=== PATIENT | male | born 1990 | race African-American/Black ===

== ENCOUNTER → 2018-06-13 | Outpatient (CLI) | payer OTHER | END | disposition home or self-care (01) | LOC: LAB 10:38 | PROVIDERS: ATTEND Preventive Medicine Preventive Medicine/Occupational Environmental Medicine | DX: Z02.1 Encounter for pre-employment examination (principal) | CPT/HCPCS: 36415; 86706; 86735; 86762; 86765; 86787 ==

== ENCOUNTER 2018-10-12 10:18 | Emergency (ER) | payer OTHER ==
[~2018-10-12] VITALS: Ht 205.7 cm; Wt 142.4 kg
[2018-10-12] MEDS ORDERED: SODIUM CHLORIDE 0.9% 1,000 ML IVB ONE (10:37)
[2018-10-12] MEDS ORDERED: KETOROLAC TROMETH 30 MG/ML 1ML VIAL IV ONE (10:45)
[2018-10-12] MEDS ORDERED: PANTOPRAZOLE 40 MG/10 ML VIAL IV ONE (11:00)
[2018-10-12 11:10] LABS: Eosinophils # (auto) 0 uL; Eosinophils % (auto) 0.1 % (0.0-7.0); Monocytes % (auto) 9.7 % (0.0-12.0); Red Blood Cells 5.37 10^6/uL (4.5-5.90)
[2018-10-12 11:11] LABS: Basophils # (auto) 0 uL; Basophils % (auto) 0.4 % (0.0-2.0); Hematocrit 42.3 % (41.0-53.0); Hemoglobin 13.9 g/dL (13.5-17.5); Lymphocytes # (auto) 1.4 uL; Lymphocytes % (auto) 14.4 % (10.0-50.0); Mean Corpuscular Hemoglobin 25.9 pg (28.0-32.0); Mean Corpuscular Hgb Conc. 32.9 g/dL (32.0-36.0); Mean Corpuscular Volume 78.7 fL (80.0-100.0); Neutrophils # (auto) 7.6 uL; Neutrophils % (auto) 75.4 % (37.0-80.0); Platelet Count (auto) 337 10^3/uL (140-450); Red Cell Distribution Width 13.4 % (11.8-14.3)
[2018-10-12 11:31] LABS: Albumin 4.3 g/dL (3.4-5.0); Calcium 9.4 mg/dL (8.5-10.1); Potassium 3.7 mmol/L (3.5-5.1)
[2018-10-12 11:36] LABS: BUN/Creatinine Ratio 10.5; Bilirubin, Total 0.7 mg/dL (0.2-1.0); Total Protein 8.4 g/dL (6.4-8.2)
[2018-10-12 13:11] VITALS: BP 123/78
== END 2018-10-12 13:13 | disposition home or self-care (01) ==
LOC: EDBD 10:18 → ER 10:18
DX: K52.9 Noninfective gastroenteritis and colitis, unspecified (principal); F17.210 Nicotine dependence, cigarettes, uncomplicated
CPT/HCPCS: 36415; 74176; 80053; 82150; 83690; 85025; 94761; 96361; 96374; 96375; 99284; C9113; J1885; J7030

== ENCOUNTER → 2020-04-10 | Emergency (ER) | payer OTHER, MEDICAID ==
[~2020-04-10] VITALS: Ht 205.7 cm; Wt 145.1 kg
[2020-04-10 20:46] VITALS: BP 116/72
== END | disposition home or self-care (01) ==
LOC: ER 20:26
DX: S80.01XA Contusion of right knee, initial encounter (principal); F17.210 Nicotine dependence, cigarettes, uncomplicated; W01.0XXA Fall on same level from slipping, tripping and stumbling without subsequent striking against object, initial encounter; Y93.89 Activity, other specified; Y92.89 Other specified places as the place of occurrence of the external cause; Y99.0 Civilian activity done for income or pay
CPT/HCPCS: 73562

== ENCOUNTER 2020-07-26 06:00 | Emergency (ER) | payer MEDICAID, OTHER ==
[~2020-07-26] VITALS: Ht 205.7 cm; Wt 149.2 kg
[2020-07-26] MEDS ORDERED: SODIUM CHLORIDE 0.9% 1,000 ML IV ONE (07:45)
[2020-07-26 08:00] LABS: Basophils # (auto) 0.1 10 ^3/uL (0-0.2); Eosinophils # (auto) 0.1 10 ^3/uL (0-0.8); Hemoglobin 12.1 g/dL (13.5-17.5); Nucleated Red Blood Cells % 0.1 %
[2020-07-26 08:02] LABS: Basophils % (auto) 1.4 % (0.0-2.0); Eosinophils % (auto) 2.1 % (0.0-7.0); Hematocrit 37.2 % (41.0-53.0); Lymphocytes # (auto) 1.7 10 ^3/uL (0.4-5.4); Lymphocytes % (auto) 31.2 % (10.0-50.0); Mean Corpuscular Hemoglobin 26.1 pg (28.0-32.0); Mean Corpuscular Hgb Conc. 32.5 g/dL (32.0-36.0); Mean Corpuscular Volume 80.2 fL (80.0-100.0); Monocytes # (auto) 0.6 10 ^3/uL (0-1.3); Monocytes % (auto) 10.4 % (0.0-12.0); Neutrophils # (auto) 2.9 10 ^3/uL (1.6-8.6); Neutrophils % (auto) 54.9 % (37.0-80.0); Platelet Count (auto) 258 10^3/uL (140-450); Red Blood Cells 4.64 10^6/uL (4.5-5.90); Red Cell Distribution Width 14.2 % (11.8-14.3); White Blood Cell 5.3 10^3/uL (4.4-10.8)
[2020-07-26 08:14] LABS: Chloride 107 mmol/L (98-107); Potassium 3.8 mmol/L (3.5-5.1); Sodium 139 mmol/L (136-145)
[2020-07-26 08:25] LABS: Alanine Aminotransferase 41 U/L (16-61); Albumin 3.7 g/dL (3.4-5.0); Alkaline Phosphatase 49 U/L (45-117); Anion Gap 5 (5-15); Aspartate Aminotransferase 27 U/L (15-37); BUN/Creatinine Ratio 13.3; Bilirubin, Total 0.3 mg/dL (0.2-1.0); Blood Urea Nitrogen 13 mg/dL (7-18); Calcium 8.6 mg/dL (8.5-10.1); Carbon Dioxide 27 mmol/L (21-32); GFR African American 115 mL/min; GFR Non-African American 95 mL/min; Glucose 85 mg/dL (74-106); Magnesium 2.2 mg/dL (1.6-2.6); Total Protein 7.2 g/dL (6.4-8.2)
[2020-07-26 18:10] VITALS: BP 113/71
== END 2020-07-26 11:51 | disposition short-term general hospital (02) ==
LOC: ER 06:00 → EEVIPCON 06:00 → ER 11:51
DX: G45.9 Transient cerebral ischemic attack, unspecified (principal); F17.210 Nicotine dependence, cigarettes, uncomplicated
CPT/HCPCS: 36415; 70450; 71046; 80053; 83735; 84443; 84484; 85025; 87426; 93005; 96360

== ENCOUNTER 2022-06-19 08:15 | Emergency (ER) | payer MEDICAID ==
[~2022-06-19] VITALS: Ht 205.7 cm; Wt 136.9 kg
[2022-06-19 10:08] VITALS: BP 136/71
[2022-06-19] MEDS ORDERED: cefTRIAXone SOD 1,000 MG VL IM ONE (10:15)
[2022-06-19] MEDS ORDERED: IBUP800T26 PO (10:58)
[2022-06-19] MEDS ORDERED: AMOX-277 PO (10:58)
== END 2022-06-19 11:13 | disposition home or self-care (01) ==
LOC: ER 08:15
DX: K02.9 Dental caries, unspecified (principal); F17.210 Nicotine dependence, cigarettes, uncomplicated
CPT/HCPCS: 96372; 99283; J0696